=== PATIENT | female | born 1960 | race Caucasian/White ===

== ENCOUNTER 2016-07-05 06:44 | Day surgery (SDC) | payer BC ==
[2016-07-04 13:02] VITALS: BMI 33.6
[2016-07-05] MEDS ORDERED: LIDOCAINE HCL/PF 1% SDV 5ML VIAL ONE (07:27)
[2016-07-05] MEDS ORDERED: PROPOFOL 20 ML ONE ×2 (07:27)
[2016-07-05] MEDS ORDERED: SUCCINYLCHOLINE CHLORIDE 200 MG/10 ML VIAL ONE (07:28)
[2016-07-05] MEDS ORDERED: ALBUTEROL SO4 2.5/IPRATROPIUM 0.5 INH SOL 3 ML VIAL.NEB. NEB ONE (08:03)
[2016-07-05 08:14] VITALS: TEMP 98
[2016-07-05 09:16] VITALS: BP 127/83; PULSE 83
--- NOTE | 2016-07-06 15:22 | PATH ---
Surgical Pathology Report Patient Name: PIEDAD RESTREPO [facility] Rec. #: [id number] /Age/Gender: 1960 (Age: 55) / F Account: [id number] Location: [facility]-ENDOS[facility] Taken: 07/05/2016 Received: 07/05/2016 Reported: 07/06/2016 Physicians: Johnathan Sutton M.D. Specimen(s) Received A: BX ANTRUM B: BX GE JUNCTION Clinical History Dysphagia Hiatal hernia Final Diagnosis A. STOMACH, ANTRUM, BIOPSY: GASTRIC OXYNTIC MUCOSA WITH FOCALLY ACTIVE MODERATE CHRONIC GASTRITIS. IMMUNOSTAIN FOR H. PYLORI IS POSITIVE FOR ORGANISMS (SCATTERED ORGANISMS). B. GE JUNCTION, BIOPSY: ULCERATED SQUAMOUS MUCOSA WITH ACTIVE AND CHRONIC INFLAMMATION AND REFLUX TYPE CHANGES. NO COLUMNAR EPITHELIUM PRESENT (NO INTESTINAL METAPLASIA/CALDERA'S ESOPHAGUS IDENTIFIED). NO HISTOLOGIC EVIDENCE OF VIRAL CYTOPATHIC EFFECT. NO FUNGAL ORGANISMS IDENTIFIED WITH PAS STAIN. Electronically Signed Don Peraza M.D. Gross Description A. Received in formalin, labeled "biopsy antrum" are 2 gregory, irregular portions of soft tissue measuring 0.3 and 0.5 cm in greatest dimension. The specimens are submitted in toto in one cassette. B. Received in formalin, labeled "biopsy GE junction" are 3 gregory, irregular portions of soft tissue ranging from 0.4-0.5 cm in greatest dimension. The specimens are submitted in toto in one cassette. 07/05/201607/05/2016
== END 2016-07-05 09:21 | disposition home or self-care (01) ==
LOC: JASU-ENDO 06:44
PROVIDERS: ATTEND Internal Medicine Gastroenterology
PROC: 0DB18ZX Excision of Upper Esophagus, Via Natural or Artificial Opening Endoscopic, Diagnostic (ICD-10-PCS; principal; 2016-07-05 07:30)
DX: K22.2 Esophageal obstruction (principal); K44.9 Diaphragmatic hernia without obstruction or gangrene
CPT/HCPCS: 88305-TC; 88312-TC; 88342-TC

== ENCOUNTER 2018-11-02 08:03 | Day surgery (SDC) | payer BC ==
[2018-10-29 14:54] VITALS: BMI 30.9
[2018-11-02] MEDS ORDERED: BUPIVACAINE HCL 0.25% 125 MG/50 ML VIAL ONE (09:03)
[2018-11-02] MEDS ORDERED: PROPOFOL 20 ML ONE ×3 (09:29)
[2018-11-02] MEDS ORDERED: oxyCODONE HCL 5 MG TABLET PO PRN ×2 (09:30)
[2018-11-02] MEDS ORDERED: LACTATED RINGERS SOLUTION 1,000 ML IV SCH (09:30)
[2018-11-02] MEDS ORDERED: ONDANSETRON 4 MG/2 ML VIAL IVPUSH PRN (09:30)
[2018-11-02] MEDS ORDERED: ACETAMINOPHEN 1000 MG/100 ML VIAL (NON FORMULARY) IVPB ONE ×2 (09:31)
[2018-11-02] MEDS ORDERED: LIDOCAINE HCL/PF 2% SDV 5ML VIAL ONE (10:03)
[2018-11-02] MEDS ORDERED: ceFAZolin SODIUM 1 GM VIAL ONE (10:05)
[2018-11-02] MEDS ORDERED: KETOROLAC TROMETHAMINE 30 MG/1 ML VIAL ONE (10:16)
[2018-11-02] MEDS ORDERED: DEXAMETHASONE SOD PHOSPHATE 4 MG/1 ML VIAL ONE (10:16)
[2018-11-02] MEDS ORDERED: ACETAMINOPHEN INJECTION 100 ML IVPB ONE (11:28)
[2018-11-02 12:24] VITALS: TEMP 97.8
[2018-11-02 13:07] VITALS: BP 127/73; PULSE 75
--- NOTE | 2018-11-03 08:32 | OP ---
DATE OF OPERATION: 11/02/2018 SURGEON: Barry Galicia MD ASSISSTANT: FELICITA Milian PREOPERATIVE DIAGNOSIS: 1. Right knee medial and lateral meniscal tears. 2. Right knee cartilage injury. 3. Right knee synovitis. POSTOPERATIVE DIAGNOSIS: 1. Right knee medial and lateral meniscal tears. 2. Right knee cartilage injury. 3. Right knee synovitis. PROCEDURE: 1. Right knee arthroscopy with partial meniscectomies of medial and lateral meniscus, CPT code 32987. 2. Right knee arthroscopy with chondroplasty, CPT code 43550. 3. Right knee arthroscopy with synovectomy, CPT code 51400. FINDINGS: 1. Medial meniscus central body to posterior horn tear, inner 1/3. 2. Lateral meniscus inner 1/3 anterior body to anterior horn. 3. Synovitis patellofemoral and medial lateral notch area. 4. Minor grade 1-2 changes medial joint line. 5. ACL and PCL intact. 6. Minimal cartilage injury lateral joint line. 7. Minor grade 1-2 cartilage injury, patella and patellofemoral trochlea. DESCRIPTION OF PROCEDURE: Informed consent was obtained. The patient came to the operating room, where the lower extremity was prepped and draped in a sterile fashion. A tourniquet was placed on the upper thigh, but not inflated. Using standard arthroscopic technique, a lateral incision and portal was made to allow for introduction of the camera into the suprapatellar bursa. This was then taken to the medial joint line, where under direct visualization, a medial incision and portal was made. Excessive synovium noted in the medial, lateral and patellofemoral and notch area was removed by an upbiter, shaver and Bovie cautery. This was found to bring in inflammatory tissue into the joint surface, a source of pain and dysfunction. Probing of the medial and lateral meniscus found tears, as described in the findings. These were removed with the upbiter and shaver and taken back to a stable rim. Grade 2 to 3 degenerative changes were treated with a chondroplasty, removing all flaking surfaces with low-setting Bovie along the periphery to prevent further flaking. Grade 4 changes, as noted, were treated with an abrasoplasty, creating a bleeding surface at the bone/cartilage interface. Aggressive debridement with shaver/corey created bleeding surface. Micro fracture also done when indicated in findings. All areas of the knee were once again reexamined. The knee was then drained and a single suture was placed in all portals. A sterile dressing was placed and the patient was transferred to the recovery room without complication. The PA listed above was present and assisted at surgery. Their presence was absolutely medically necessary for the completion of the procedure. They helped hold the arthroscopy, pass instruments (and implants when indicated) and the procedure could not have been completed without their assistance. BARRY GALICIA M.D. [id number]
--- NOTE | 2018-11-07 16:34 | PATH ---
Surgical Pathology Report Patient Name: PIEDAD RESTREPO [facility]. Rec. #: [id number] /Age/Gender: 1960 (Age: 58) / F Account: [id number] Location: [facility] AM[facility] Taken: 11/02/2018 Received: 11/02/2018 Reported: 11/07/2018 Physicians: Barry Blevins M.D. Specimen(s) Received SHAVINGS RIGHT KNEE Clinical History Right knee osteoarthritis Final Diagnosis KNEE, RIGHT, ARTHROSCOPIC SHAVINGS: CARTILAGE AND FIBROSYNOVIAL TISSUE. Electronically Signed Bhavya Zamora M.D. Gross Description Received in formalin, labeled "right knee shavings," is a 2.5 x 2.0 x 0.3 cm. aggregate of gregory-yellow soft tissue fragments. The formalin is filtered and the specimen is entirely submitted in one cassette. /11/05/201811/05/2018
== END 2018-11-02 12:55 | disposition home or self-care (01) ==
LOC: FASU 08:03
PROVIDERS: ATTEND Orthopaedic Surgery
PROC: 0SBC4ZZ Excision of Right Knee Joint, Percutaneous Endoscopic Approach (ICD-10-PCS; 2018-11-02)
PROC: 0SBC4ZZ Excision of Right Knee Joint, Percutaneous Endoscopic Approach (ICD-10-PCS; 2018-11-02)
PROC: 0SBC4ZZ Excision of Right Knee Joint, Percutaneous Endoscopic Approach (ICD-10-PCS; principal; 2018-11-02 10:17)
DX: S83.241A Other tear of medial meniscus, current injury, right knee, initial encounter (principal); S83.281A Other tear of lateral meniscus, current injury, right knee, initial encounter; S83.8X1A Sprain of other specified parts of right knee, initial encounter; M65.861 Other synovitis and tenosynovitis, right lower leg; X58.XXXA Exposure to other specified factors, initial encounter; Y93.89 Activity, other specified; Y92.89 Other specified places as the place of occurrence of the external cause
CPT/HCPCS: 88304-TC; 94760; J0131

== ENCOUNTER 2020-12-18 06:20 | Day surgery (SDC) | payer BC ==
[2020-12-16 16:09] VITALS: BMI 31.5
[2020-12-18] MEDS ORDERED: LIDOCAINE HCL 2% (20ML MULTI-DOSE VIAL) ONE (07:05)
[2020-12-18] MEDS ORDERED: PROPOFOL 20 ML ONE (07:09)
[2020-12-18] MEDS ORDERED: MIDAZOLAM HCL 2 MG/2 ML SINGLE DOSE VIAL ONE (07:09)
[2020-12-18] MEDS ORDERED: DEXAMETHASONE SOD PHOSPHATE 4 MG/1 ML VIAL ONE (08:01)
[2020-12-18] MEDS ORDERED: ceFAZolin SODIUM 1 GM VIAL ONE (08:01)
[2020-12-18] MEDS ORDERED: ONDANSETRON 4 MG/2 ML VIAL ONE (08:01)
[2020-12-18] MEDS ORDERED: LIDOCAINE HCL/PF 2% SDV 5ML VIAL SQ ONE (08:14)
[2020-12-18 08:50] VITALS: TEMP 98
[2020-12-18 09:09] VITALS: BP 118/65; PULSE 65
== END 2020-12-18 09:35 | disposition home or self-care (01) ==
LOC: FASU 06:20
PROVIDERS: ATTEND Orthopaedic Surgery
PROC: 0LN70ZZ Release Right Hand Tendon, Open Approach (ICD-10-PCS; principal; 2020-12-18 07:30)
DX: M65.331 Trigger finger, right middle finger (principal)